=== PATIENT | female | born 1995 | race Two or more races ===

== ENCOUNTER 2017-09-16 11:14 | Emergency (ER) | payer SELFPAY ==
[~2017-09-16] VITALS: Ht 160 cm; Wt 83.5 kg
[2017-09-16] MEDS ORDERED: BENADRYL25 MG ORAL (11:37)
[2017-09-16] MEDS ORDERED: PREDNISONE20 MG ORAL (11:37)
[2017-09-16 12:12] VITALS: BP 130/91
[2017-09-16 12:15] VITALS: BP 130/91
--- NOTE | 2017-09-24 14:24 | Emergency Room Report ---
History of Present Illness General Chief Complaint: Allergic Reaction Source: Patient Present Illness HPI Patient presents with complaints of facial skin rash Reports that yesterday she felt increased rash more diffusely however to the Benadryl and seems to have improved It is difficult to report exactly the reaction the patient had she thinks that she might have taken alkaseltzer, however also reported taking Aleve At this time denies any chest pain or shortness of breath Denies any headache denies any abdominal pain denies any nausea vomiting The rash is mainly involving the facial region she also had some urticaria left in the lower legs Allergies: Coded Allergies: IBUPROFEN (Verified Allergy, Unknown, 09/16/17) NAPROXEN (Verified Allergy, Unknown, 09/16/17) Uncoded Allergies: ALKASELTZER (Allergy, Unknown, 09/16/17) Patient History Past Medical History: see triage record Pertinent Family History: none Last Menstrual Period: 09/09/17 Reviewed Nursing Documentation: PMH: Agreed, PSxH: Agreed Nursing Documentation-PMH Past Medical History: No Stated History Review of Systems All Other Systems: negative except mentioned in HPI Physical Exam Sp02 EP Interpretation: reviewed, normal General Appearance: well appearing, no apparent distress Head: normocephalic, atraumatic Eyes: bilateral eye PERRL, bilateral eye EOMI ENT: hearing grossly normal, normal pharynx Neck: full range of motion, supple Respiratory: lungs clear, normal breath sounds Cardiovascular #1: regular rate, rhythm, no edema Gastrointestinal: non tender, soft Musculoskeletal: normal inspection Neurologic: alert, oriented x3, responsive Skin: other - She has a nonspecific distribution rash involving the upper facial area does not appear to be in a Malor formation, small mild raised areas , there are also several raised regions in the left upper leg irregular does not appear target cell appearance does not appear to be petechiae Lymphatic: no adenopathy Medical Decision Making Diagnostic Impression: Primary Impression: Allergic reaction ER Course Patient essentially treated symptomatically here in the ER There are no upper respiratory pathology Patient has appropriate reevaluation it is difficult to ascertain possible contact reaction versus ingested reaction Patient also recalls having her eyelashes done At this time will have continued outpatient medication and have close follow-up Status: improved Disposition: HOME, SELF-CARE Condition: Improved Scripts Diphenhydramine Hcl* (BENADRYL*) 25 Mg Capsule 25 MG ORAL Q6H Y for Itching, #20 CAP Prov: Carlito Pascual DO 09/16/17 Prednisone* (PREDNISONE*) 20 Mg Tablet 20 MG ORAL BID, #8 TAB Prov: Carlito Pascual DO 09/16/17 Referrals: NOT CHOSEN IPA/MD,REFERRING (PCP) Patient Instructions: Rash, [id number] Additional Instructions: Patient is provided with the discharge instructions notified to follow up with primary doctor in the next 2-3 days otherwise return to the er with any worsening symptoms. Please note that this report is being documented using Answer[employer]To technology. This can lead to erroneous entry secondary to incorrect interpretation by the dictating instrument. Carlito Pascual DO Sep 24, 2017 14:24
== END 2017-09-16 12:00 | disposition home or self-care (01) ==
LOC: EMR 11:30
DX: T78.40XA Allergy, unspecified, initial encounter (principal); Z88.6 Allergy status to analgesic agent; Z88.8 Allergy status to other drugs, medicaments and biological substances; X58.XXXA Exposure to other specified factors, initial encounter
CPT/HCPCS: 99283; J7512